=== PATIENT | male | born 1980 | race African-American/Black ===

== ENCOUNTER 2021-06-21 19:08 | Emergency (ER) | payer OTHER ==
[2021-06-21] MEDS ORDERED: Mag-Al 1200 mg/1200 mg/30 ML UDCUP ONE (19:42)
[2021-06-21] MEDS ORDERED: Ketorolac Tromethamine 30 MG/ML VIAL ONE (19:42)
[2021-06-21] MEDS ORDERED: Lidocaine Viscous Sol 2% 15 ml UD Cup ONE (19:42)
== END 2021-06-21 20:49 | disposition home or self-care (01) ==
LOC: ERS 19:08
DX: K21.00 Gastro-esophageal reflux disease with esophagitis, without bleeding (principal)
CPT/HCPCS: 93005; 96372; J1885